=== PATIENT | female | born 1985 | race Caucasian/White ===

== ENCOUNTER 2018-01-21 16:30 | Outpatient (REF) | payer BC, SELFPAY ==
--- NOTE | 2018-01-21 15:45 | PAPFT_PTH ---
PATIENT: Olimpia Whitaker LOC: N U#:[id number] AGE/SX: 32/F ROOM: RE01/21/[address]: DAYA Perez : 1985 BED: DIS: 01/21/2018 SPEC #: [id number] RECD: 01/21/18 18:03 STATUS: ANANTH BOWIE #: [id number] BETSEY: 01/21/18 15:[address]: Nickie Daniels DEPT: [facility] Cytology RECD BY: Shannan Haji ENTERED: 01/21/18 18:03 SP TYPE: PAPFT EMELINA DR: Silke Mtz APRN Tissues: 1 - CX/ENDOCX FOR PAP SMEARS Procedures: PAP THIN PREP/[facility] Screening HPV DNA PROBE Comments: [id number]
== END 2018-01-21 16:50 ==
LOC: LBN 16:30
PROVIDERS: PCP Nurse Practitioner; Visit Provider Nurse Practitioner Family
DX: Z12.4 Encounter for screening for malignant neoplasm of cervix (principal); Z11.51 Encounter for screening for human papillomavirus (HPV)
CPT/HCPCS: 88142; 87624

== ENCOUNTER 2018-07-08 13:04 | Outpatient (CLI) | payer OTHER, SELFPAY ==
--- NOTE | 2018-07-08 12:00 | DI.RAD_ITS ---
SYMPTOMS/DIAGNOSIS: COUGH, RML, RLL, LLL CONGESTION ON EXAM, ? PNEUMONIA PA AND LATERAL CHEST: The cardiac and mediastinal contours have a normal appearance. The lungs are well inflated and clear. No infiltrate or effusion is seen. No mass or adenopathy is identified. The bones are unremarkable. IMPRESSION: Negative chest x-ray.
== END 2018-07-08 13:24 ==
PROVIDERS: PCP Nurse Practitioner; Visit Provider Nurse Practitioner Adult Health
DX: R05 Cough (principal); R50.9 Fever, unspecified; R09.89 Other specified symptoms and signs involving the circulatory and respiratory systems
CPT/HCPCS: 71046

== ENCOUNTER 2018-10-20 14:51 | Outpatient (CLI) | payer OTHER, SELFPAY ==
[2018-10-20 15:43] LABS: Abs Immature Grans 0.01 k/cumm (0.0-0.09); Absolute Basophil Count 0.03 k/cumm (0.0-0.2); Absolute Eosinophil Count 0.18 k/cumm (0.0-0.7); Absolute Lymphocyte Count 1.63 k/cumm (1.2-3.4); Absolute Neutrophil Count 4.45 k/cumm (1.2-6.7); Basophils % 0.4; Eosinophils % 2.7; HCT 38.3 % (36.0-46.0); HGB 12.9 g/dL (12.0-15.5); Immature Grans % 0.1; Lymphocytes % 24.3; Mean Corp. HGB Concentration 33.7 g/dL (32.0-36.0); Mean Corpuscular Hemoglobin 30.6 pg (27.0-33.0); Mean Corpuscular Volume 90.8 fL (80-95); Mean Platelet Volume 9.2 fL (8.0-11.0); Neutrophils % 66.5; Platelet Count 275 x1000/uL (130-400); RBC 4.22 m/cumm (4.00-5.20); RBC Distribution Width 12.4 % (11.7-14.6)
[2018-10-20 16:25] LABS: TSH (W/Ref FT4) 1.86 uIU/mL (0.358-3.74)
[2018-10-24 10:08] LABS: HIV-1/2 Ag & Ab Screen Negative (NEGAT); Hepatitis B Surface Ag Negative (NEGAT); Hepatitis C Ab w Rflx HCV PCR Negative (NEGAT)
[2018-10-24 11:21] LABS: Syphilis Serology (RPR) Negative (Negative); Varicella IgG Antibody Positive
[2018-10-24 12:48] LABS: Rubella IgG Ab (UVM) Positive
== END 2018-10-20 15:11 ==
PROVIDERS: PCP Nurse Practitioner; Visit Provider Advanced Practice Midwife
DX: Z34.91 Encounter for supervision of normal pregnancy, unspecified, first trimester (principal); Z11.4 Encounter for screening for human immunodeficiency virus [HIV]; Z11.59 Encounter for screening for other viral diseases; Z01.84 Encounter for antibody response examination
CPT/HCPCS: 36415; 80055; 86787; 86803; 86850; 86900; 86901; 87340; 87389; 84443; 86592; 86762

== ENCOUNTER 2018-10-20 15:45 | Outpatient (REF) | payer OTHER, SELFPAY ==
[2018-10-20 18:58] LABS: *AMPHETAMINES SCREEN URINE Negative (Negative); *BARBITURATES SCREEN URINE Negative (Negative); *BENZODIAZEPINES SCREEN URINE Negative (Negative); Cannabinoids THC Negative (Negative); Cocaine Screen,Urine Negative (Negative); METHADONE URINE SCREEN Negative (Negative); OPIATES URINE SCREEN Negative (Negative)
[2018-10-20 19:24] LABS: Tricyclic Antidepressants Negative (Negative)
[2018-10-24 13:23] LABS: Chlamydia Result Negative; GC Result Negative; Specimen Description CERVIX
[2018-10-26 11:35] LABS: Buprenorphine Negative; Norbuprenorphine Negative
== END 2018-10-20 16:05 ==
LOC: LBN 15:45
PROVIDERS: PCP Nurse Practitioner; Visit Provider Advanced Practice Midwife
DX: Z34.91 Encounter for supervision of normal pregnancy, unspecified, first trimester (principal); Z11.3 Encounter for screening for infections with a predominantly sexual mode of transmission
CPT/HCPCS: 80307; 87491; 87591; 87086

== ENCOUNTER 2018-12-15 00:52 | Outpatient (CLI) | payer OTHER, SELFPAY ==
--- NOTE | 2018-12-15 07:30 | MERGE_ITS ---
*[facility]* *[facility]* [address] [place] [address] Date of study: 12/15/2018 Transthoracic Echocardiography M-mode, complete 2D, complete spectral Doppler, and color Doppler *STUDY CONCLUSIONS* Summary: 1. Left ventricle: The cavity size was normal. The estimated ejection fraction was 60%. Diastolic parameters were normal. 2. Mitral valve: There was mild regurgitation. 3. Right ventricle: The cavity size was normal. Wall thickness was normal. Systolic function was normal. 4. Atrial septum: No defect or patent foramen ovale was identified. 5. Pulmonary arteries: Pulmonary systolic pressure was in the range of 15mm Hg to 25mm Hg. 6. Inferior vena cava: The vessel was patent and normal in size. The respirophasic diameter changes were in the normal range (greater than or equal to 50%), consistent with normal central venous pressure. *PATIENT PRESENTATION* Height: 157.5cm (62in ) S/D Pressure: 111 / 68 Weight: 74.4kg (163.7lb ) BSA: 1.83m^2 Test start time: 07:45 AM. Test stop time: 08:40 AM. PERFORMING Unknown PERFORMING [facility] BAR BACK RT [place])(CT), [facility] CONSULTING Silke Mtz ORDERING Silke Mtz REFERRING Silke Mtz *PROCEDURE DATA* Procedure information: This study was interpreted by [facility]. Pertinent images and digital data are archived for permanent storage and are available for subsequent review. No prior study was available for comparison. Study status: Routine. Transthoracic echocardiography. M-mode, complete 2D, complete spectral Doppler, and color Doppler. A Transthoracic Echocardiogram was performed. Scanning was performed from the parasternal, apical, subcostal, and suprasternal notch acoustic windows. Images were obtained using an [id number] cardiac ultrasound machine. Image quality was good. Study completion: The patient tolerated the procedure well. History: PMH: Systolic heart murmur r01.1. *CARDIAC ANATOMY* Left ventricle: The cavity size was normal. The estimated ejection fraction was 60%. The tissue Doppler parameters were normal. Diastolic parameters were normal. There was no evidence of elevated ventricular filling pressure by Doppler parameters. Aortic valve: Trileaflet. Doppler: There was no stenosis. There was no regurgitation. VTI ratio of LVOT to aortic valve: 0.7. Valve area (VTI): 2.1cm^2. Indexed valve area (VTI): 1.1cm^2/m^2. Peak velocity ratio of LVOT to aortic valve: 0.71. Valve area (Vmax): 2.2cm^2. Indexed valve area (Vmax): 1.2cm^2/m^2. Mean velocity ratio of LVOT to aortic valve: 0.72. Valve area (Vmean): 2.2cm^2. Indexed valve area (Vmean): 1.2cm^2/m^2. Mean gradient (S): 5.5mm Hg. Peak gradient (S): 9.6mm Hg. Aorta: Aortic root: The aortic root was normal in size. Ascending aorta: The ascending aorta was normal in size. Mitral valve: Doppler: There was no evidence for stenosis. There was mild regurgitation. Valve area by pressure half-time: 4.9cm^2. Indexed valve area by pressure half-time: 2.7cm^2/m^2. Peak gradient (D): 2.4mm Hg. Left atrium: The atrium was normal in size. Atrial septum: No defect or patent foramen ovale was identified. Right ventricle: The cavity size was normal. Wall thickness was normal. Systolic function was normal. Pulmonic valve: Doppler: There was no evidence for stenosis. There was no significant regurgitation. Peak gradient (S): 4.1mm Hg. Tricuspid valve: Doppler: There was trivial regurgitation. Pulmonary artery: Poorly visualized. Pulmonary systolic pressure was in the range of 15mm Hg to 25mm Hg. Right atrium: The atrium was normal in size. Pericardium: There was no pericardial effusion. Systemic veins: Inferior vena cava: Well visualized. The vessel was patent and normal in size. The respirophasic diameter changes were in the normal range (greater than or equal to 50%), consistent with normal central venous pressure. Measurements Left ventricle Value Reference LV ID, ED, PLAX 4.7 cm 3.5 - 6.0 LV ID, ES, PLAX 3.6 cm 2.1 - 4.0 LV PW thickness, ED, PLAX 0.8 cm LV end-diastolic volume, 1-p A2C 96 ml LV ejection fraction, 1-p A2C 57 % LV end-diastolic volume, 1-p A4C 79 ml LV ejection fraction, 1-p A4C 55 % LV e', lateral 0.175 m/sec LV E/e', lateral 4 LV e', medial 0.119 m/sec LV E/e', medial 7 LV e', average 0.147 m/sec LV E/e', average 5 Ventricular septum Value Reference IVS thickness, ED, PLAX 0.8 cm LVOT Value Reference LVOT ID, A-P 2.0 cm LVOT area 3 cm^2 LVOT peak velocity, S 1.11 m/sec LVOT mean velocity, S 0.81 m/sec LVOT VTI, S 23.0 cm LVOT peak gradient, S 4.9 mm Hg LVOT mean gradient, S 2.9 mm Hg Stroke volume (SV), LVOT DP 69 ml Stroke index (SV/bsa), LVOT DP 38 ml/m^2 Aortic valve Value Reference Aortic valve peak velocity, S 1.6 m/sec Aortic valve mean velocity, S 1.1 m/sec Aortic valve VTI, S 33.0 cm Aortic mean gradient, S 5.5 mm Hg Aortic peak gradient, S 9.6 mm Hg VTI ratio, LVOT/AV 0.7 Aortic valve area, VTI 2.1 cm^2 Velocity ratio, peak, LVOT/AV 0.71 Aortic valve area, peak velocity 2.2 cm^2 Velocity ratio, mean, LVOT/AV 0.72 Aortic valve area, mean velocity 2.2 cm^2 Aortic valve area/bsa, mean velocity 1.2 cm^2/m^2 Aorta Value Reference Aortic root ID, ED 2.9 cm Ascending aorta ID, A-P, S 2.6 cm Left atrium Value Reference LA ID, A-P, ES 3.3 cm LA ID/bsa, A-P 1.8 cm/m^2 <=2.2 LA volume, ES, 2-p 47 ml LA volume/bsa, ES, 2-p 26 ml/m^2 LA/aortic root ratio 1.17 Mitral valve Value Reference Mitral E-wave peak velocity 0.78 m/sec Mitral A-wave peak velocity 0.67 m/sec Mitral deceleration time 154 ms 150 - 230 Mitral pressure half-time 45 ms Mitral peak gradient, D 2.4 mm Hg Mitral E/A ratio, peak 1.17 Mitral valve area, PHT, DP 4.9 cm^2 Pulmonary veins Value Reference Pulmonary vein peak velocity, S 0.68 m/sec Pulmonary vein peak velocity, D 0.67 m/sec Pulmonary vein velocity ratio, peak, 1.01 S/D Pulmonary vein A-wave reversal peak 0.47 m/sec velocity Pulmonary vein A-wave reversal 141 ms duration Tricuspid valve Value Reference Tricuspid regurg peak velocity 2.2 m/sec Tricuspid peak RV-RA gradient 19.6 mm Hg Right atrium Value Reference RA area, ES, A4C 8.8 cm^2 8.3 - 19.5 Pulmonic valve Value Reference Pulmonic peak gradient, S 4.1 mm Hg Legend: (L) and (H) mago values outside specified reference range. I have personally reviewed the images and have reviewed and edited the reported findings. Electronically signed by Isidro Jung MD 12/15/2018 11:39
== END 2018-12-15 01:12 ==
PROVIDERS: PCP Nurse Practitioner; Visit Provider Nurse Practitioner
DX: R01.1 Cardiac murmur, unspecified (principal); I34.0 Nonrheumatic mitral (valve) insufficiency
CPT/HCPCS: 93306

== ENCOUNTER 2018-12-29 00:55 | Outpatient (CLI) | payer OTHER, SELFPAY ==
--- NOTE | 2018-12-29 15:00 | DI.US_ITS ---
SYMPTOMS/DIAGNOSIS: , 20-WEEK ANATOMICAL SCAN, Z34.90 OBSTETRICAL ULTRASOUND: Predicted Gestational Age: Indication/History: 19+5 Wks Range: 18+5 to 20+5 Prior US done on: Determined by: First US LMP History EDC by prior US: For multiple gestations: Baby PLACENTA: Grade: 0-I Location: Anterior X Posterior PRESENTATION: RT LT LOW LYING PREVIA Cephalic Trans (Head RT LT ) Varied X Breech BIOMETRY: Anatomy Identified: BPD: 45 mm 19+4 wks 4 chamber Heart X Heart Rate BPM HC: 174 mm 20 wks LVOT X Post Fossa X AC: 148 mm 20+1 wks RVOT X Ventricles X FL: 31 mm 19+4 wks Stomach X Nose X Bladder X Lips X Cisterna Magna: 4 mm CI: 73.3 Kidneys X Palate X Cerebellum: 2 cm 3- vessel cord X Spine X EFW: 318 grms 55% Cord Insertion X NS= not seen Composite Age (US) 19+6 wks Many abnormalities cannot be diagnosed. A normal exam does not exclude congenital abnormality. EDC by US: 05/19/2019 Amniotic Fluid Index: Normal TECH COMMENTS: 0 pounds 11 ounces RUQ: LUQ: Echogenic focus seen within stomach measuring 2 mm RLQ: LLQ: Total: cm Biophysical Profile: Score 0/2 ANGELIC (>2cm) Respirations (>30 sec) Body flexion/extension Extremity flexion/extension TOTAL SCORE RADIOLOGIST COMMENTS: There is a single living intrauterine gestation. Estimated sonographic age is 19 weeks 6 days. The fetus was in various positions during the examination. heart rate was 157 beats per minute. anatomic evaluation was unremarkable except for a 2 mm echogenic focus seen within the lumen of the stomach. The focus was less echogenic than the adjacent bone and is within normal limits. The placenta is posterior without evidence of previa. IMPRESSION: Single living intrauterine gestation. Estimated sonographic age is 19 weeks 6 days.
== END 2018-12-29 01:15 ==
PROVIDERS: PCP Nurse Practitioner; Visit Provider Advanced Practice Midwife
DX: Z34.92 Encounter for supervision of normal pregnancy, unspecified, second trimester (principal)
CPT/HCPCS: 76805

== ENCOUNTER 2019-03-02 01:40 | Outpatient (CLI) | payer OTHER, SELFPAY ==
[2019-03-02 09:59] LABS: Glucose,1 Hr (Glucola) 78 mg/dL (80-140)
[2019-03-02 10:01] LABS: HCT 36.7 % (36.0-46.0); HGB 12.1 g/dL (12.0-15.5); Mean Corpuscular Hemoglobin 30.6 pg (27.0-33.0); Mean Corpuscular Volume 92.9 fL (80-95); Mean Platelet Volume 9.2 fL (8.0-11.0); Platelet Count 252 x1000/uL (130-400); RBC 3.95 m/cumm (4.00-5.20); RBC Distribution Width 12.6 % (11.7-14.6); White Blood Cell Count 7.54 k/cumm (4.4-10.8)
== END 2019-03-02 02:00 ==
PROVIDERS: PCP Nurse Practitioner; Visit Provider Advanced Practice Midwife
DX: Z34.93 Encounter for supervision of normal pregnancy, unspecified, third trimester (principal)
CPT/HCPCS: 36415; 82950; 85027

== ENCOUNTER 2019-04-13 16:53 | Outpatient (CLI) | payer OTHER, SELFPAY ==
[2019-04-13 17:14] LABS: HCT 37.9 % (36.0-46.0); HGB 12.4 g/dL (12.0-15.5); Mean Corp. HGB Concentration 32.7 g/dL (32.0-36.0); Mean Corpuscular Hemoglobin 30.1 pg (27.0-33.0); Mean Platelet Volume 9.6 fL (8.0-11.0); Platelet Count 252 x1000/uL (130-400); RBC 4.12 m/cumm (4.00-5.20); RBC Distribution Width 12.6 % (11.7-14.6); White Blood Cell Count 8.51 k/cumm (4.4-10.8)
[2019-04-13 17:24] LABS: PROTEIN 9.4 mg/dL
[2019-04-13 17:25] LABS: COMMENT (LAB VIEW ONLY) 26.31 mg/dL; Prot/Crea Ur Ratio 0.35
[2019-04-13 17:49] LABS: ALT 32 U/L (14-59); AST 28 U/L (15-37); Alkaline Phosphatase 194 U/L (46-116); Anion Gap 9.2 mmol/L (3-11); BUN 10 mg/dL (7-18); Bilirubin, Total 0.2 mg/dL (0.2-1.0); CO2 25.8 mmol/L (21.0-32.0); CREATININE 0.64 mg/dL (0.55-1.02); Calcium 8.7 mg/dL (8.5-10.1); Chloride 101 mmol/L (98-107); Glucose 75 mg/dL (74-106); Potassium 4.1 mmol/L (3.5-5.1); Sodium 136 mmol/L (136-145); Total Protein 6.7 g/dL (6.4-8.2); Uric Acid 4.5 mg/dL (2.6-6.0)
== END 2019-04-13 17:13 ==
PROVIDERS: PCP Nurse Practitioner; Visit Provider Advanced Practice Midwife
DX: O14.93 Unspecified pre-eclampsia, third trimester (principal)
CPT/HCPCS: 36415; 80053; 85027; 82565; 84156; 84550

== ENCOUNTER 2019-04-17 11:43 | Outpatient (REF) | payer OTHER, SELFPAY ==
[2019-04-17 12:20] LABS: PROTEIN 11.8 mg/dL (0.0-11.9)
[2019-04-17 12:27] LABS: TOTAL PROTEIN,URINE TIMED 106.2 mg/24hr (0.0-149.1); Total Volume 900 ml
== END 2019-04-17 12:03 ==
LOC: LBN 11:43
PROVIDERS: PCP Nurse Practitioner; Visit Provider Advanced Practice Midwife
DX: O13.9 Gestational [pregnancy-induced] hypertension without significant proteinuria, unspecified trimester (principal)
CPT/HCPCS: 81050; 84155

== ENCOUNTER 2019-04-19 13:00 | Outpatient (CLI) | payer OTHER, SELFPAY | END 2019-04-19 13:20 | PROVIDERS: PCP Nurse Practitioner; Visit Provider Advanced Practice Midwife | DX: O13.3 Gestational [pregnancy-induced] hypertension without significant proteinuria, third trimester (principal); Z3A.36 36 weeks gestation of pregnancy | CPT/HCPCS: 59025 ==

== ENCOUNTER 2019-04-24 13:04 | Outpatient (CLI) | payer OTHER, SELFPAY | END 2019-04-24 13:24 | PROVIDERS: PCP Nurse Practitioner; Visit Provider Advanced Practice Midwife | DX: O13.3 Gestational [pregnancy-induced] hypertension without significant proteinuria, third trimester (principal); Z3A.36 36 weeks gestation of pregnancy | CPT/HCPCS: 59025 ==

== ENCOUNTER 2019-04-27 16:32 | Outpatient (CLI) | payer OTHER, SELFPAY ==
[2019-04-27 17:37] LABS: HCT 34.4 % (36.0-46.0); HGB 11.4 g/dL (12.0-15.5); Mean Corp. HGB Concentration 33.1 g/dL (32.0-36.0); Mean Corpuscular Hemoglobin 30.4 pg (27.0-33.0); Mean Corpuscular Volume 91.7 fL (80-95); Mean Platelet Volume 9.4 fL (8.0-11.0); Platelet Count 295 x1000/uL (130-400); RBC 3.75 m/cumm (4.00-5.20); RBC Distribution Width 12.6 % (11.7-14.6); White Blood Cell Count 7.85 k/cumm (4.4-10.8)
[2019-04-27 17:45] LABS: *AMPHETAMINES SCREEN URINE Negative (Negative); *BARBITURATES SCREEN URINE Negative (Negative); *BENZODIAZEPINES SCREEN URINE Negative (Negative); Cannabinoids THC Negative (Negative); Cocaine Screen,Urine Negative (Negative); METHADONE URINE SCREEN Negative (Negative); OPIATES URINE SCREEN Negative (Negative)
[2019-04-27 17:48] LABS: Tricyclic Antidepressants Negative (Negative)
[2019-04-27 18:11] LABS: ALT 31 U/L (14-59); AST 27 U/L (15-37); Albumin 2.5 g/dL (3.4-5.0); Alkaline Phosphatase 226 U/L (46-116); Anion Gap 9.9 mmol/L (3-11); BUN 8 mg/dL (7-18); Bilirubin, Total 0.2 mg/dL (0.2-1.0); CO2 24.1 mmol/L (21.0-32.0); CREATININE 0.75 mg/dL (0.55-1.02); Calcium 8.7 mg/dL (8.5-10.1); Chloride 100 mmol/L (98-107); Glucose 103 mg/dL (74-106); Sodium 134 mmol/L (136-145); Total Protein 6.8 g/dL (6.4-8.2); Uric Acid 4.4 mg/dL (2.6-6.0)
[2019-04-27 18:16] LABS: COMMENT (LAB VIEW ONLY) 19.23 mg/dL; PROTEIN 10.7 mg/dL; Prot/Crea Ur Ratio 0.55
[2019-05-01 10:08] LABS: Buprenorphine Negative
== END 2019-04-27 16:52 ==
PROVIDERS: Advanced Practice Midwife; PCP Nurse Practitioner; Visit Provider Advanced Practice Midwife
DX: O13.3 Gestational [pregnancy-induced] hypertension without significant proteinuria, third trimester (principal); Z3A.36 36 weeks gestation of pregnancy
CPT/HCPCS: 36415; 80053; 80307; 85027; 59025; 82565; 84156; 84550; 87081

== ENCOUNTER 2019-04-29 11:06 | Outpatient (REF) | payer OTHER, SELFPAY ==
[2019-04-29 12:02] LABS: Creatinine,Urine 69.44 mg/dL; PROTEIN 12.8 mg/dL (0.0-11.9)
[2019-04-29 12:18] LABS: Creatinine,24hr Ur 2.57 g/24hr (0.60-1.80); TOTAL PROTEIN,URINE TIMED 473.6 mg/24hr (0.0-149.1); Total Volume 3700 ml
== END 2019-04-29 11:26 ==
LOC: LBN 11:06
PROVIDERS: PCP Nurse Practitioner; Visit Provider Advanced Practice Midwife
DX: O13.9 Gestational [pregnancy-induced] hypertension without significant proteinuria, unspecified trimester (principal)
CPT/HCPCS: 82570; 84155

== ENCOUNTER 2019-05-01 13:27 | Outpatient (CLI) | payer OTHER, SELFPAY ==
--- NOTE | 2019-05-01 15:42 | DI.US_ITS ---
EXAM: US OB ANGELIC WEIGHT CLINICAL HISTORY: nonreactive NST, gestational HTN TECHNIQUE: Ultrasound performed using standard protocol. COMPARISON: US OB 2-3 trimester from 12/29/2018 FINDINGS: There is a single living intrauterine gestation. The fetus is in the cephalic presentation. heart rate is 143 beats per minute. Estimated feta l weight is 2906 grams. This is the 32nd percentile. The placenta is posterior and fundal without evidence of previa Amniotic fluid index is 11.6 centimeters. Visually the amniotic fluid is within normal limits. IMPRESSION: Single living intrauterine gestation. Estimated sonographic age is 35 weeks 6 days.
--- NOTE | 2019-05-01 15:57 | DI.US_ITS ---
EXAM: US OB BIOPHYSICAL PROFILE CLINICAL HISTORY: nonreactive NST, gestational HTN TECHNIQUE: Ultrasound performed using standard protocol. COMPARISON: US OB ANGELIC WEIGHT from 05/01/2019 FINDINGS: There is a single living intrauterine gestation. Amniotic fluid index was 11.6 cm. Biophysical profile score is 4/8. No extremity flexion or extension was seen during the examination. In addition body flexion and exte nsion was limited during the examination. IMPRESSION: Biophysical profile score is 4/8. A follow-up examination may be considered for re-evaluation.
== END 2019-05-01 13:47 ==
PROVIDERS: PCP Nurse Practitioner; Visit Provider Advanced Practice Midwife
DX: O13.3 Gestational [pregnancy-induced] hypertension without significant proteinuria, third trimester (principal); Z3A.35 35 weeks gestation of pregnancy; Z36.89 Encounter for other specified antenatal screening
CPT/HCPCS: 76815; 76816; 59025; 76819

== ENCOUNTER 2019-05-04 09:31 | Inpatient (IN) | payer OTHER, SELFPAY ==
[2019-05-04 10:06] LABS: HCT 34.3 % (36.0-46.0); HGB 11.6 g/dL (12.0-15.5); Mean Corp. HGB Concentration 33.8 g/dL (32.0-36.0); Mean Corpuscular Hemoglobin 30.9 pg (27.0-33.0); Mean Corpuscular Volume 91.5 fL (80-95); Mean Platelet Volume 9.5 fL (8.0-11.0); Platelet Count 277 x1000/uL (130-400); RBC 3.75 m/cumm (4.00-5.20); RBC Distribution Width 12.8 % (11.7-14.6); White Blood Cell Count 7.09 k/cumm (4.4-10.8)
[2019-05-04] MEDS: miSOPROStol 50 MCG TAB PO ×2 (10:17→14:27)
[2019-05-04 11:29] LABS: PROTEIN 11.3 mg/dL
[2019-05-04 11:50] LABS: COMMENT (LAB VIEW ONLY) 20.56 mg/dL; Prot/Crea Ur Ratio 0.54
[2019-05-05] MEDS: Hamamelis Leaf/Glycerin 100 EACH BOX PR (05:38)
[2019-05-05] MEDS: Ibuprofen 600 MG TAB PO ×2 (09:37→22:04)
[2019-05-05] MEDS: Acetaminophen 325 MG TAB 650 MG PO ×2 (09:37→22:03)
[2019-05-06 07:37] LABS: HCT 35.8 % (36.0-46.0); HGB 11.7 g/dL (12.0-15.5); Mean Corp. HGB Concentration 32.7 g/dL (32.0-36.0); Mean Corpuscular Hemoglobin 30.2 pg (27.0-33.0); Mean Corpuscular Volume 92.5 fL (80-95); Mean Platelet Volume 9.5 fL (8.0-11.0); Platelet Count 261 x1000/uL (130-400); RBC 3.87 m/cumm (4.00-5.20); RBC Distribution Width 12.8 % (11.7-14.6); White Blood Cell Count 7.02 k/cumm (4.4-10.8)
== END 2019-05-06 17:20 | disposition home or self-care (01) | DRG 807 ==
PROVIDERS: Admitting Provider Advanced Practice Midwife; PCP Nurse Practitioner; Visit Provider Advanced Practice Midwife
DX: O13.4 Gestational [pregnancy-induced] hypertension without significant proteinuria, complicating childbirth (principal); Z37.0 Single live birth; Z3A.37 37 weeks gestation of pregnancy; O99.344 Other mental disorders complicating childbirth; F41.9 Anxiety disorder, unspecified; R01.1 Cardiac murmur, unspecified
CPT/HCPCS: 36415; 85027; 86850; 86900; 86901; 82565; 84156

== ENCOUNTER 2020-10-21 16:41 | Outpatient (REF) | payer OTHER, SELFPAY ==
--- NOTE | 2020-10-21 16:15 | PAPFT_PTH ---
PATIENT: Olimpia Whitaker LOC: [facility] U#:[id number] AGE/SX: 35/F ROOM: RE10/21/[address]: Kesha Diana NP : 1985 BED: DIS: 10/21/2020 SPEC #: [id number] RECD: 10/21/20 17:50 STATUS: ANANTH BOWIE #: [id number] BETSEY: 10/21/20 16:[address]: Kesha Diana NP DEPT: [facility]ENDING [facility] Cytology RECD BY: Shannan Haji ENTERED: 10/21/20 17:51 SP TYPE: PAPFT EMELINA DR: Silke Mtz APRN Tissues: 1 - CX/ENDOCX FOR PAP SMEARS Procedures: PAP THIN PREP/[facility] Screening HPV DNA PROBE Comments: [id number]
== END 2020-10-21 16:42 | disposition home or self-care (01) ==
LOC: LBN 16:41
PROVIDERS: PCP Nurse Practitioner; Visit Provider Nurse Practitioner Women's Health
DX: Z12.4 Encounter for screening for malignant neoplasm of cervix (principal); Z11.51 Encounter for screening for human papillomavirus (HPV); Z01.419 Encounter for gynecological examination (general) (routine) without abnormal findings
CPT/HCPCS: 88142; 87624

== ENCOUNTER 2023-08-13 01:44 | Outpatient (CLI) | payer OTHER, SELFPAY ==
[2023-08-13 09:26] LABS: Abs Immature Grans 0.01 10^3/uL (0.0-0.06); Absolute Basophil Count 0.06 10^3/uL (0.0-0.2); Absolute Lymphocyte Count 1.52 10^3/uL (1.2-3.4); Absolute Monocyte Count 0.27 10^3/uL (0.1-0.8); Absolute Neutrophil Count 3.02 10^3/uL (1.2-6.7); Basophils % 1.2; Eosinophils % 3.9; HCT 38.4 % (36.0-46.0); HGB 12.8 g/dL (11.2-15.7); Immature Grans % 0.2; Lymphocytes % 29.9; MCH 30.6 pg (27.0-33.0); MCHC 33.3 % (32.0-36.0); MCV 92 fL (80-95); MPV 8.9 fL (8.0-11.0); Monocytes % 5.3; Neutrophils % 59.5; Platelet Count 307 10^3/uL (130-400); RBC 4.18 10^6/uL (3.93-5.22); RDW 11.8 % (11.7-14.6); RDW-SD 39.8 fL; WBC 5.08 10^3/uL (4.4-10.8)
[2023-08-13 09:52] LABS: ALT 19 U/L (14-59); AST 11 U/L (15-37); Alkaline Phosphatase 57 U/L (46-116); Anion Gap 8.9 mmol/L (3-11); BUN 7 mg/dL (7-18); Bilirubin, Total 0.6 mg/dL (0.2-1.0); CO2 28.1 mmol/L (21.0-32.0); CREATININE 0.8 mg/dL (0.55-1.02); Calculated LDL 80 mg/dL (<100); Chloride 103 mmol/L (98-107); Cholesterol 156 mg/dL (<200); Estimated GFR 97.26 (mL/min/1.73m2); Glucose 95 mg/dL (74-106); HDL Cholesterol 70 mg/dL (40-60); Sodium 140 mmol/L (136-145); Total Protein 7.4 g/dL (6.4-8.2); Triglyceride 31 mg/dL (<150)
== END 2023-08-13 01:45 | disposition home or self-care (01) ==
LOC: LBO 01:44
PROVIDERS: Absent Provider Nurse Practitioner; PCP Nurse Practitioner; Referring Provider Nurse Practitioner; Visit Provider Nurse Practitioner
DX: Z13.220 Encounter for screening for lipoid disorders (principal)
CPT/HCPCS: 36415; 80053; 80061; 85025